=== PATIENT | male | born 1955 | race Caucasian/White ===

== ENCOUNTER 2016-05-03 02:01 | Inpatient (IN) | payer MEDICAID ==
[~2016-05-03] VITALS: Ht 193 cm; Wt 80.5 kg
[~2016-05-03 02:01] MED LIST: ASPI-556 PO; QUET200T PO
[2016-05-03] MEDS ORDERED: TRIH5 PO (02:09)
[2016-05-03] MEDS ORDERED: SERT50TA12 PO (02:09)
[2016-05-03] MEDS ORDERED: ATEN50TA PO (02:09)
[2016-05-03] MEDS ORDERED: QUET25TA PO (02:09)
[2016-05-03] MEDS ORDERED: WARF1 PO (02:17)
[2016-05-03 02:30] LABS: BASOPHILS # (AUTO) 0.04 K/uL (0.00-0.20); BASOPHILS % (AUTO) 0.7 % (0.0-2.0); EOSINOPHILS % (AUTO) 3.06 % (1.0-6.0); HEMATOCRIT 44.3 % (41-53); LYMPHOCYTES # (AUTO) 2.5 K/uL (1.0-4.8); LYMPHOCYTES % (AUTO) 38.4 % (22.0-44.0); MEAN CORPUSCULAR HEMOGLOBIN 32.2 pg (26.0-34.0); MEAN CORPUSCULAR HGB CONC 33.8 G/dL (31.0-37.0); MEAN CORPUSCULAR VOLUME 95 fL (80-100); MONOCYTES # (AUTO) 0.7 K/uL (0.1-1.0); MONOCYTES % (AUTO) 10.2 % (2.0-9.0); NEUTROPHILS # (AUTO) 3.1 K/uL (1.8-7.7); NEUTROPHILS % (AUTO) 47.7 % (40.0-70.0); PLATELET COUNT (AUTO) 142 K/uL (150-450); RED BLOOD CELL COUNT(AUTO) 4.65 MIL/uL (4.50-5.90); RED CELL DISTRIBUTION WIDTH 14.9 % (11.5-14.5); WHITE BLOOD COUNT (AUTO) 6.6 K/uL (4.5-11.0)
[2016-05-03] MEDS ORDERED: HALOPERIDOL 5 MG TABLET PO PRN (02:45)
[2016-05-03] MEDS ORDERED: ZOLPIDEM TARTRATE 10 MG TABLET PO PRN (02:45)
[2016-05-03 02:46] LABS: ANION GAP 9 mmol/L (8-16); CALCIUM, TOTAL 8.7 mg/dL (8.8-10.5); CARBON DIOXIDE 28 mmol/L (22-29); CHLORIDE 104 mmol/L (98-107); CREATININE 0.82 mg/dL (0.60-1.30); GLOMERULAR FILTR. RATE CALC > 60 mL/min (>60); POTASSIUM 4.1 mmol/L (3.5-5.1); SODIUM SERUM 141 mmol/L (136-145); UREA NITROGEN, BLOOD 11 mg/dL (7-18)
[2016-05-03 02:53] LABS: ALANINE AMINOTRANSFERASE 184 U/L (12-78); ASPARTATE AMINOTRANSFERASE 120 U/L (15-37); BILIRUBIN,TOTAL 0.2 mg/dL (0.1-1.0); TOTAL PROTEIN, SERUM 8.6 g/dL (6.4-8.2)
[2016-05-03 03:30] LABS: INR 1.1 (0.9-1.1); PROTHROMBIN TIME 11.4 SEC (9.4-11.6)
[2016-05-03 08:15] VITALS: BP 141/88
[2016-05-03] MEDS ORDERED: IBUPROFEN 600 MG TABLET PO PRN (09:00)
[2016-05-03] MEDS ORDERED: CloNIDine HCL 0.1 MG TABLET PO PRN (09:00)
[2016-05-03] MEDS ORDERED: ONDANSETRON HCL 4 MG TABLET PO PRN (09:00)
[2016-05-03] MEDS ORDERED: BACITRACIN 28.4 GM OINTMENT TP PRN (09:00)
[2016-05-03] MEDS ORDERED: BENZOCAINE/MENTHOL LOZENGE MM PRN (09:00)
[2016-05-03] MEDS ORDERED: MAG HYDROX/AL HYDROX/SIMETH ES 30 ML SUSPENSION UDCUP PO PRN (09:00)
[2016-05-03] MEDS ORDERED: LOPERAMIDE HCL 2 MG CAPSULE PO PRN (09:00)
[2016-05-03] MEDS ORDERED: MAGNESIUM HYDROXIDE SUSPENSION 30 ML UDCUP PO PRN (09:00)
[2016-05-03] MEDS ORDERED: PETROLATUM,WHITE 71 GM JELLY TP PRN (09:00)
[2016-05-03] MEDS ORDERED: ALBUTEROL SULFATE HFA 90 MCG/PUFF 8 GM INHALER IH PRN (09:00)
[2016-05-03] MEDS ORDERED: ACETAMINOPHEN 325 MG TABLET PO PRN (09:00)
[2016-05-03] MEDS ORDERED: BENZOCAINE/MENTHOL LOZENGE [8 LOZENGES/PACKET] MM PRN (09:04)
[2016-05-03] MEDS: CHOLECALCIFEROL (VIT D3) 1,000 UNITS TABLET PO SCH (10:09)
[2016-05-03] MEDS: LORazepam 2 MG TABLET PO PRN (11:10)
[2016-05-03 16:14] VITALS: BP 117/86
[2016-05-03] MEDS: QUEtiapine FUMARATE 25 MG TABLET PO SCH (16:17)
[2016-05-03] MEDS: QUEtiapine FUMARATE 200 MG TABLET PO SCH (20:24)
[2016-05-04] MEDS: LORazepam 2 MG TABLET PO PRN (02:51)
[2016-05-04 06:51] VITALS: BP 109/67
[2016-05-04 08:14] VITALS: BP 121/71
[2016-05-04] MEDS: CHOLECALCIFEROL (VIT D3) 1,000 UNITS TABLET PO SCH (08:34)
[2016-05-04] MEDS: SERTRALINE HCL 50 MG TABLET PO SCH (08:34)
[2016-05-04] MEDS: QUEtiapine FUMARATE 25 MG TABLET PO SCH ×2 (08:34→16:33)
[2016-05-04] MEDS: TRIHEXYPHENIDYL HCL 5 MG TABLET PO SCH (08:34)
[2016-05-04 16:05] VITALS: BP 112/68
[2016-05-04] MEDS: QUEtiapine FUMARATE 200 MG TABLET PO SCH (20:15)
[2016-05-05 06:04] VITALS: BP 117/71
[2016-05-05 08:56] VITALS: BP 103/60
[2016-05-05] MEDS: QUEtiapine FUMARATE 25 MG TABLET PO SCH ×2 (09:58→16:40)
[2016-05-05] MEDS: SERTRALINE HCL 50 MG TABLET PO SCH (09:58)
[2016-05-05] MEDS: TRIHEXYPHENIDYL HCL 5 MG TABLET PO SCH (09:58)
[2016-05-05] MEDS: CHOLECALCIFEROL (VIT D3) 1,000 UNITS TABLET PO SCH (09:58)
[2016-05-05 16:07] VITALS: BP 112/66
[2016-05-05] MEDS: QUEtiapine FUMARATE 200 MG TABLET PO SCH (20:36)
[2016-05-06 07:50] LABS: BASOPHILS # (AUTO) 0.02 K/uL (0.00-0.20); BASOPHILS % (AUTO) 0.5 % (0.0-2.0); EOSINOPHILS # (AUTO) 0.17 K/uL (0.00-0.70); EOSINOPHILS % (AUTO) 3.43 % (1.0-6.0); HEMATOCRIT 47.2 % (41-53); HEMOGLOBIN 15.8 g/dL (13.5-17.5); LYMPHOCYTES # (AUTO) 2.1 K/uL (1.0-4.8); LYMPHOCYTES % (AUTO) 42.6 % (22.0-44.0); MEAN CORPUSCULAR HEMOGLOBIN 32.2 pg (26.0-34.0); MEAN CORPUSCULAR HGB CONC 33.4 G/dL (31.0-37.0); MEAN CORPUSCULAR VOLUME 96 fL (80-100); MONOCYTES # (AUTO) 0.7 K/uL (0.1-1.0); MONOCYTES % (AUTO) 14.7 % (2.0-9.0); NEUTROPHILS # (AUTO) 1.9 K/uL (1.8-7.7); NEUTROPHILS % (AUTO) 38.8 % (40.0-70.0); PLATELET COUNT (AUTO) 130 K/uL (150-450); RED CELL DISTRIBUTION WIDTH 14.8 % (11.5-14.5); WHITE BLOOD COUNT (AUTO) 4.8 K/uL (4.5-11.0)
[2016-05-06 08:33] VITALS: BP 103/61
[2016-05-06] MEDS: CHOLECALCIFEROL (VIT D3) 1,000 UNITS TABLET PO SCH (08:40)
[2016-05-06] MEDS: TRIHEXYPHENIDYL HCL 5 MG TABLET PO SCH (08:40)
[2016-05-06] MEDS: QUEtiapine FUMARATE 25 MG TABLET PO SCH (08:40)
[2016-05-06] MEDS: SERTRALINE HCL 50 MG TABLET PO SCH (08:40)
[2016-05-06] MEDS ORDERED: TRIHEXYPHENIDYL HCL 5 MG TABLET PO SCH (17:00)
== END 2016-05-06 14:25 | disposition home or self-care (01) | DRG 750 ==
LOC: EMS 02:02 → AHU 03:15 → B2S 10:29
PROVIDERS: ADMIT Psychiatry & Neurology Psychiatry; ATTEND Psychiatry & Neurology Child & Adolescent Psychiatry
DX: F25.1 Schizoaffective disorder, depressive type (principal); E55.9 Vitamin D deficiency, unspecified; B18.2 Chronic viral hepatitis C; F10.10 Alcohol abuse, uncomplicated; F17.200 Nicotine dependence, unspecified, uncomplicated; F20.0 Paranoid schizophrenia; K59.00 Constipation, unspecified; J44.9 Chronic obstructive pulmonary disease, unspecified; M19.90 Unspecified osteoarthritis, unspecified site; F17.210 Nicotine dependence, cigarettes, uncomplicated; F12.90 Cannabis use, unspecified, uncomplicated; I48.91 Unspecified atrial fibrillation; Z79.51 Long term (current) use of inhaled steroids; Z79.899 Other long term (current) drug therapy; Z71.6 Tobacco abuse counseling; Z79.01 Long term (current) use of anticoagulants; Z79.82 Long term (current) use of aspirin
CPT/HCPCS: 82306; 93005; 99285; 99406; G0480; J3535